=== PATIENT | female | born 1955 | race Caucasian/White ===

== ENCOUNTER → 2017-06-25 | Outpatient (CLI) | payer OTHER ==
[~2017-06-25] MED LIST: ASPEC325 PO; CHOL200027 PO; CLB200 PO; HYDR-5688 PO; LISI-461 PO; OXYSR10 PO
[2017-06-25 19:35] LABS: SYNOVIAL FLUID APPEARANCE HAZY; SYNOVIAL FLUID COLOR YELLOW
[2017-06-25 19:36] LABS: SYNOVIAL FLUID MONONUC RELAT 30.7 %; SYNOVIAL FLUID POLYNUC RELAT 69.3 %
== END | disposition home or self-care (01) ==
LOC: C.LAB 17:40
PROVIDERS: ATTEND Orthopaedic Surgery
DX: M25.462 Effusion, left knee (principal)